=== PATIENT | female | born 1950 | race Caucasian/White ===

== ENCOUNTER 2019-07-28 16:55 | Inpatient (IN) ==
[2019-07-28] MEDS ORDERED: Isovue-370 500 ML BOTTLE IVP ONE (18:40)
[2019-07-28 20:33] LABS: INR 1.2; Prothrombin Time 13.5 Seconds (9.4-12.1)
[2019-07-28 20:36] LABS: Activated Partial Thrombo Time 32.5 Seconds (26.0-36.0)
[2019-07-28] MEDS ORDERED: Ondansetron 4 MG/2 ML VIAL IVP PRN (22:19)
[2019-07-28] MEDS ORDERED: *HR* Promethazine 25 MG/ML VIAL IVP PRN (22:19)
[2019-07-28] MEDS ORDERED: Famotidine 20 MG/2 ML VIAL IVP ONE (22:27)
[2019-07-28] MEDS ORDERED: Ketorolac 30 MG/ML VIAL IVP ONE (22:35)
[2019-07-28] MEDS: Ringers Solution, Lactated 1,000 ML IVC SCH (23:47)
[2019-07-29] MEDS: Ringers Solution, Lactated 1,000 ML IVC SCH (04:35)
[2019-07-29] MEDS ORDERED: Ketorolac 30 MG/ML VIAL IVP PRN (05:00)
[2019-07-29 06:15] LABS: Basophils % 0.3 %; Hematocrit 38.6 % (35.3-44.9); Immature Granulocytes % 0.6 % (0-4); Lymphocytes # 0.8 K/mcL (0.6-4.6); Lymphocytes % 12.7 %; Mean Corpuscular HGB Conc 33.7 g/dL (31.6-35.5); Mean Corpuscular Hemoglobin 28.9 pg (28.0-33.3); Mean Corpuscular Volume 85.8 fL (83.0-100.0); Mean Platelet Volume 12.2 fL (9.4-12.4); Monocytes # 0.4 K/mcL (0.0-1.3); Monocytes % 5.8 %; Platelet Count 152 K/mcL (140-400); Red Cell Distribution Width 13.5 % (11.5-14.5); Segmented Neutrophils % 80.6 %; White Blood Count 6.2 K/mcL (4.3-11.1)
[2019-07-29 06:40] LABS: Alanine Aminotransferase 240 Units/L (7-52); Albumin 3.5 g/dL (3.5-5.7); Albumin/Globulin Ratio 1.3 (1.1-2.2); Alkaline Phosphatase 262 Units/L (34-104); Aspartate Amino Transferase 113 Units/L (13-39); BUN/Creatinine Ratio 15 (6-26); Bilirubin,Direct 3.3 mg/dL (0.0-0.2); Bilirubin,Indirect 1.2 mg/dL (0.0-1.0); Bilirubin,Total 4.5 mg/dL (0.3-1.0); Blood Urea Nitrogen 11 mg/dL (8-23); Calcium 8.5 mg/dL (8.6-10.3); Carbon Dioxide 25 mEq/L (23-29); Chloride 100 mEq/L (98-107); Globulin 2.7 g/dL (2.4-3.5); Glucose 112 mg/dL (70-105); Magnesium 1.9 mg/dL (1.6-2.6); Osmolality,Calculated 282 (280-300); Phosphorous 3.3 mg/dL (2.7-4.5); Potassium 3.7 mEq/L (3.5-5.1); Sodium 136 mEq/L (136-145); Total Protein 6.2 g/dL (6.4-8.9); eGFR For African Americans > 60 (> 60); eGFR For Non-African Americans > 60 (> 60)
[2019-07-29] MEDS: *HR* Heparin 5,000 UNIT/ML VIAL SQ SCH ×2 (07:56→17:59)
[2019-07-29] MEDS: Piperacillin/Tazobactam 3.375 GM in 0.9 % Sodium Chloride Mini Bag 100 ML IVPB SCH ×2 (08:29→17:59)
[2019-07-29] MEDS: Pantoprazole 40 MG VIAL IVP SCH (08:29)
[2019-07-29] MEDS: 0.9 % Sodium Chloride 1,000 ML IVC SCH (11:44)
[2019-07-29] MEDS ORDERED: *HR* Propofol 200 MG/20 ML VIAL IVP ONE (18:44)
[2019-07-29] MEDS ORDERED: Ringers Solution, Lactated 1,000 ML IVC SCH (18:45)
[2019-07-29] MEDS ORDERED: *HR* FentaNYL (PF) 100 MCG/2 ML VIAL ONE (18:45)
[2019-07-29] MEDS ORDERED: Lidocaine -MPF 1% 5 ML AMPUL ONE (19:05)
[2019-07-29] MEDS ORDERED: Dexamethasone 4 MG/ML VIAL ONE (19:05)
[2019-07-29] MEDS ORDERED: *HR* Rocuronium Bromide 50 MG/5 ML VIAL ONE (19:05)
[2019-07-29] MEDS ORDERED: Ondansetron 4 MG/2 ML VIAL ONE (19:05)
[2019-07-29] MEDS ORDERED: Ketorolac 30 MG/ML VIAL ONE (19:06)
[2019-07-29] MEDS ORDERED: Indomethacin 50 MG SUPP.RECT RC ONE (19:33)
[2019-07-29] MEDS ORDERED: *HR* Labetalol 20 MG/4 ML SYRINGE IVP ONE (20:11)
[2019-07-29] MEDS: *HR* Labetalol 20 MG/4 ML SYRINGE IVP PRN ×2 (20:14→20:29)
[2019-07-30] MEDS: Piperacillin/Tazobactam 3.375 GM in 0.9 % Sodium Chloride Mini Bag 100 ML IVPB SCH ×2 (00:02→09:13)
[2019-07-30] MEDS: 0.9 % Sodium Chloride 1,000 ML IVC SCH (00:02)
[2019-07-30 06:04] LABS: Hematocrit 37.9 % (35.3-44.9); Hemoglobin 12.2 g/dL (11.5-15.4); Mean Corpuscular HGB Conc 32.2 g/dL (31.6-35.5); Mean Corpuscular Hemoglobin 28.9 pg (28.0-33.3); Mean Corpuscular Volume 89.8 fL (83.0-100.0); Mean Platelet Volume 11.9 fL (9.4-12.4); Platelet Count 129 K/mcL (140-400); Red Blood Count 4.22 M/mcL (3.82-4.97); Red Cell Distribution Width 13.6 % (11.5-14.5); White Blood Count 5.7 K/mcL (4.3-11.1)
[2019-07-30] MEDS: *HR* Heparin 5,000 UNIT/ML VIAL SQ SCH (06:38)
[2019-07-30 08:55] LABS: Alanine Aminotransferase 160 Units/L (7-52); Albumin 3.2 g/dL (3.5-5.7); Albumin/Globulin Ratio 1.2 (1.1-2.2); Alkaline Phosphatase 225 Units/L (34-104); Aspartate Amino Transferase 58 Units/L (13-39); BUN/Creatinine Ratio 18 (6-26); Bilirubin,Total 2.9 mg/dL (0.3-1.0); Blood Urea Nitrogen 10 mg/dL (8-23); Carbon Dioxide 24 mEq/L (23-29); Chloride 104 mEq/L (98-107); Globulin 2.7 g/dL (2.4-3.5); Glucose 141 mg/dL (70-105); Osmolality,Calculated 291 (280-300); Potassium 3.9 mEq/L (3.5-5.1); Sodium 140 mEq/L (136-145); Total Protein 5.9 g/dL (6.4-8.9); eGFR For African Americans > 60 (> 60); eGFR For Non-African Americans > 60 (> 60)
[2019-07-30] MEDS ORDERED: (Ezetimibe [Zetia] 10 MG) PO SCH (09:00)
[2019-07-30] MEDS: Pantoprazole 40 MG VIAL IVP SCH (09:13)
[2019-07-30 11:35] VITALS: BP 122/64
== END 2019-07-30 15:15 | disposition home or self-care (01) | DRG 446 ==
LOC: EMEROOARM 16:55 → 3ANU 16:55
PROVIDERS: ADMIT Internal Medicine; ATTEND Internal Medicine